=== PATIENT | female | born 1995 | race Two or more races ===

== ENCOUNTER 2017-07-06 16:53 | Emergency (ER) | payer OTHER ==
[2017-07-06 17:16] VITALS: TEMP 98.8
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
[2017-07-06] MEDS ORDERED: AZITHROMYCIN 250 MG TAB PO ONE (18:04)
[2017-07-06] MEDS ORDERED: ULIPRISTAL ACETATE 30 MG TAB PO ONE (18:04)
[2017-07-06 19:32] VITALS: BP 142/78; PULSE 82; RESP 18; O2SAT 98
== END 2017-07-06 19:32 | disposition home or self-care (01) ==
LOC: EEVIPCON 16:53 → SANE 19:32
DX: T74.21XA Adult sexual abuse, confirmed, initial encounter (principal); Y07.9 Unspecified perpetrator of maltreatment and neglect
CPT/HCPCS: J0696